=== PATIENT | male | born 1960 | race Caucasian/White ===

== ENCOUNTER 2016-10-28 13:58 | Inpatient (IN) | payer BC ==
[~2016-10-28] VITALS: Ht 172.7 cm; Wt 99.1 kg
[2016-10-28] VITALS (9 sets, daily range): BP systolic 94–155; BP diastolic 67–97; PULSE 91–110; RESP 16–24; TEMP 97.1–98.4; O2SAT 97–100
[2016-10-28] MEDS ORDERED: SODIUM CHLORIDE 0.9% FLUSH 10 ML FLUSH IVF PRN (15:15)
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
[2016-10-28 15:43] LABS: AUTOMATED NEUTROPHIL # 5.5 TH/MM3 (1.8-7.7); BASOPHIL # 0.1 TH/MM3 (0-0.2); BASOPHIL % 1.2 % (0.0-2.0); EOSINOPHIL # 0.3 TH/MM3 (0-0.4); EOSINOPHIL % 3.1 % (0.0-4.0); HEMATOCRIT 38.5 % (39.0-51.0); HEMO FLAGS DIFF FINAL; LYMPH % 23.2 % (9.0-44.0); MEAN CELL VOLUME 105.9 FL (80.0-100.0); MEAN CORPUSCULAR HEMOGLOBIN 36.6 PG (27.0-34.0); MEAN CORPUSCULAR HGB CONC 34.5 % (32.0-36.0); MONO % 9.6 % (0.0-8.0); NEUT % 62.9 % (16.0-70.0); PLATELET COUNT 194 TH/MM3 (150-450); RED BLOOD COUNT 3.63 MIL/MM3 (4.50-5.90); RED CELL DISTRIBUTION WIDTH 14.5 % (11.6-17.2); WHITE BLOOD COUNT 8.8 TH/MM3 (4.0-11.0)
[2016-10-28] MEDS ORDERED: SODIUM CHLOR 0.9% 1000 ML INJ 1,000 ML IV ONE ×2 (15:45→16:45)
[2016-10-28 15:53] LABS: APTT (PATIENT) 25.9 SEC (24.3-30.1); INTERNATIONAL NORMALIZED RATIO 1.1 RATIO; PROTHROMBIN TIME - PATIENT 11.9 SEC (9.8-11.6)
--- NOTE | 2016-10-28 16:06 | RADRPT ---
EXAM DATE/TIME: 10/28/2016 15:37 [facility] COMPARISON: No previous studies available for comparison. INDICATIONS : Cough and dizziness. MEDICAL HISTORY : None. SURGICAL HISTORY : None. ENCOUNTER: Initial ACUITY: 4 - 6 days PAIN SCORE: 0/10 LOCATION: Bilateral chest FINDINGS: Minimal linear parenchymal opacity at the left lung base. Cardiomediastinal contours are within naina l limits. Bony thorax is intact. CONCLUSION: 1. Minimal left basilar atelectasis/scarring. Beck Stark MD on October 28, 2016 at 16:04 Board Certified Radiologist. This report was verified electronically.
[2016-10-28 16:18] LABS: ALKALINE PHOSPHATASE 112 U/L (45-117); ALT (GPT) 34 U/L (12-78); ANION GAP 8 MEQ/L (5-15); AST (GOT) 35 U/L (15-37); BICARBONATE 28.2 MEQ/L (21.0-32.0); BLOOD UREA NITROGEN 20 MG/DL (7-18); CHLORIDE 93 MEQ/L (98-107); GLOMERULAR FILTRATION RATE 31 ML/MIN (>89); MAGNESIUM 0.8 MG/DL (1.5-2.5); SODIUM (NA) 129 MEQ/L (136-145); TOTAL BILIRUBIN ADULT 0.4 MG/DL (0.2-1.0)
[2016-10-28 16:19] LABS: CREATINE KINASE 73 U/L (39-308); POTASSIUM 3.9 MEQ/L (3.5-5.1)
[2016-10-28 16:22] LABS: CALCIUM-PROTEIN CORRECTED 11.8 MG/DL (8.5-10.1)
[2016-10-28] MEDS: MAGNESIUM SULFATE 1 GM PREMIX 100 ML IV SCH ×2 (16:38→17:43)
[2016-10-28] MEDS ORDERED: ONDANSETRON HCL 4 MG/2 ML VIAL IVP PRN (16:45)
[2016-10-28] MEDS ORDERED: NALOXONE HCL 0.4 MG/ML AMP IV PUSH PRN (16:45)
[2016-10-28] MEDS ORDERED: BISACODYL 10 MG SUPP RECTAL PRN (16:45)
[2016-10-28] MEDS ORDERED: MAGNESIUM HYDROXIDE SUSP 30 ML CUP PO PRN (16:45)
[2016-10-28] MEDS ORDERED: SODIUM CHLORIDE 0.9% FLUSH 10 ML FLUSH IV FLUSH PRN (16:45)
[2016-10-28] MEDS ORDERED: ACETAMINOPHEN 325 MG TAB PO PRN (16:45)
[2016-10-28] MEDS ORDERED: SENNOSIDES 8.6 MG TAB PO PRN (16:45)
[2016-10-28] MEDS ORDERED: LACTULOSE SYRUP 20 GM/30 ML CUP PO PRN (16:45)
--- NOTE | 2016-10-28 17:53 | HHI.HP ---
[facility] Unknown Admission Diagnosis hypercalcemia, hypomagnesemia, generalized weakness Diagnoses: (1) Hypercalcemia (2) Hypomagnesemia (3) Acute kidney injury Chief Complaint: Hypercalcemia Travel History International Travel<30 Days: No Contact w/Intl Traveler <30 Da: No Traveled to Known Affected Are: No History of Present Illness Written by Renee Coleman, acting as scribe for Dr. Riddle on 10/28/16 at 17:46. Mr. Mendez is a 56-year-old male patient with a known medical history of hypertension, diverticulitis, GERD and tobacco abuse who presented to the ED with hypercalcemia. Patient states he has been suffering from worsening indigestion x 1 week and has been taking tums regularly throughout the day for over a week now with no relief. Patient visited his PCP on Saturday for indigestion and got labs done. PCP called him today updating him on his increased calcium level and was advised to come to the ED for treatment. Denies any recent illness including fever, chills, cough, chest pain, shortness of breath, headache, abdominal pain, nausea, vomiting, diarrhea or dysuria. He does complain of associated dizziness. Denies any significant history of electrolyte imbalance. Also states he has been in [facility] for the past 3 years and was "unable to drink milk there, so he has been drinking a glass of milk every day as well". He has followed with a GI doctor, unknown name, and received GI work up including colonoscopy and EGD 6 months ago which was unremarkable per patient. Denies any recent stool changes or hematochezia. Also states that he has chronic hypertension and takes BP mediation from [place] "because it is less expensive" and cannot recall the name. States will bring in his medications later. Denies any palpitations, seizures, muscle weakness or tremors. Review of Systems Constitutional: DENIES: Fatigue, Fever, Change in appetite Eyes: DENIES: Eye pain Ears, nose, mouth, throat: DENIES: Throat pain, Ear Pain Respiratory: DENIES: Cough, Shortness of breath Cardiovascular: DENIES: Chest pain, Palpitations Gastrointestinal: DENIES: Constipation, Diarrhea, Nausea, Vomiting Musculoskeletal: COMPLAINS OF: Muscle aches Neurologic: COMPLAINS OF: Localized weakness Psychiatric: DENIES: Anxiety Except as stated in HPI: all other systems reviewed are Neg Past Family Social History Past Medical History Hypertension Tobacco abuse GERD Diverticulitis Past Surgical History Colonoscopy and EGD 6 months ago. Reported Medications Active Active Prescriptions or Reported Medications Unobtainable Allergies: Coded Allergies: No Known Allergies (Unverified , 10/28/16) Active Ordered Medications Current Medications Medications (Trade) Dose Ordered Sig/Minerva Route Start Time Stop Time Status Last Admin Magnesium Sulfate/ Dextrose 100 ml @ 100 mls/hr Q1H IV 10/28/16 16:30 10/28/16 18:29 10/28/16 17:43 Sodium Chloride 1,000 ml @ 100 mls/hr Q10H IV 10/28/16 16:38 (NS Flush) 2 ml UNSCH PRN IV FLUSH 10/28/16 16:45 (NS Flush) 2 ml BID IV FLUSH 10/28/16 21:00 (Tylenol) 650 mg Q4H PRN PO 10/28/16 16:45 (Zofran Inj) 4 mg Q6H PRN IVP 10/28/16 16:45 (Lovenox Inj) 40 mg Q24H SQ 10/28/16 17:00 (Narcan Inj) 0.4 mg UNSCH PRN IV PUSH 10/28/16 16:45 (Tiffanie-Colace) 1 tab BID PO 10/28/16 21:00 (Milk Of Magnesia Liq) 30 ml Q12H PRN PO 10/28/16 16:45 (Senokot) 17.2 mg Q12H PRN PO 10/28/16 16:45 (Dulcolax Supp) 10 mg DAILY PRN RECTAL 10/28/16 16:45 (Lactulose Liq) 30 ml DAILY PRN PO 10/28/16 16:45 Sodium Chloride 1,000 ml @ 999 mls/hr BOLUS ONCE IV 10/28/16 16:45 10/28/16 17:45 10/28/16 17:29 Family History Sister has significant medical history of thyroid disease. No known Social History Patient admits to current tobacco abuse smoking 1 1/2 pack per day. Admits to drinking 2 alcoholic drinks per day. Denies any illicit drug use. Physical Exam Vital Signs Vital Signs Date Time Temp Pulse Resp B/P (MAP) Pulse Ox O2 Delivery O2 Flow Rate FiO2 10/28/16 16:42 97 16 122/82 (95) 99 Room Air 10/28/16 15:37 94 20 109/77 (88) 103 24 108/78 (88) 105 21 94/67 (76) 10/28/16 15:11 103 24 129/77 (94) 99 Room Air 10/28/16 13:59 98.4 110 16 137/75 (95) 98 Physical Exam GENERAL: This is a well-nourished, well-developed male patient, lying in bed in no apparent distress. SKIN: No rashes, ecchymoses or lesions. Warm and dry. HEAD: Atraumatic. Normocephalic. Pupils equal round and reactive. Extraocular motions intact. No scleral icterus. No injection or drainage. Nose without bleeding. Uvula midline. Airway patent. NECK: Trachea midline. No JVD or lymphadenopathy. Supple. CARDIOVASCULAR: Regular rate and rhythm without murmurs, gallops, or rubs. RESPIRATORY: Clear to auscultation. Breath sounds equal bilaterally. No wheezes , rales, or rhonchi. GASTROINTESTINAL: Abdomen soft, non-tender, nondistended. No guarding. MUSCULOSKELETAL: Extremities without clubbing, cyanosis, or edema. No joint tenderness, effusion, or edema noted. NEUROLOGICAL: Awake and alert. Cranial nerves II through XII intact. Motor and sensory grossly within normal limits. Five out of 5 muscle strength in all muscle groups. Normal speech. Laboratory Laboratory Tests Test 10/28/16 15:30 White Blood Count 8.8 Red Blood Count 3.63 Hemoglobin 13.3 Hematocrit 38.5 Mean Corpuscular Volume 105.9 Mean Corpuscular Hemoglobin 36.6 Mean Corpuscular Hemoglobin Concent 34.5 Red Cell Distribution Width 14.5 Platelet Count 194 Mean Platelet Volume 10.1 Neutrophils (%) (Auto) 62.9 Lymphocytes (%) (Auto) 23.2 Monocytes (%) (Auto) 9.6 Eosinophils (%) (Auto) 3.1 Basophils (%) (Auto) 1.2 Neutrophils # (Auto) 5.5 Lymphocytes # (Auto) 2.0 Monocytes # (Auto) 0.9 Eosinophils # (Auto) 0.3 Basophils # (Auto) 0.1 CBC Comment DIFF FINAL Differential Comment Prothrombin Time 11.9 Prothromb Time International Ratio 1.1 Activated Partial Thromboplast Time 25.9 Blood Urea Nitrogen 20 Creatinine 2.23 Random Glucose 87 Total Protein 7.5 Albumin 3.7 Calcium Level 12.0 Magnesium Level 0.8 Alkaline Phosphatase 112 Aspartate Amino Transf (AST/SGOT) 35 Alanine Aminotransferase (ALT/SGPT) 34 Total Bilirubin 0.4 Sodium Level 129 Potassium Level 3.9 Chloride Level 93 Carbon Dioxide Level 28.2 Anion Gap 8 Estimat Glomerular Filtration Rate 31 Protein Corrected Calcium 11.8 Total Creatine Kinase 73 Troponin I LESS THAN 0.02 Result Diagram: 10/28/16 1530 10/28/16 1530 Imaging Last Impressions Chest X-Ray 10/28/16 1515 Signed Impressions: Service Date/Time: Friday, October 28, 2016 15:37 - CONCLUSION: 1. Minimal left basilar atelectasis/scarring. MD Tita Ca VTE Risk Assessment Caprini VTE Risk Assessment: No/Low Risk (score <= 1) Caprini Risk Assessment Model Point Value = 1 Point Value = 2 Point Value = 3 Point Value = 5 Age 41-60 Minor surgery BMI > 25 kg/m2 Swollen legs Varicose veins or History of unexplained or recurrent spontaneous Oral contraceptives or hormone replacement Sepsis (< 1 month) Serious lung disease, including pneumonia (< 1 month) Abnormal pulmonary function Acute myocardial infarction Congestive heart failure (< 1 month) History of inflammatory bowel disease Medical patient at bed rest Age 61-74 Arthroscopic surgery Major open surgery (> 45 min) Laparoscopic surgery (> 45 min) Malignancy Confined to bed (> 72 hours) Immobilizing plaster cast Central venous access Age >= 75 History of VTE Family history of VTE Factor V Leiden Prothrombin [id number] Lupus anticoagulant Anticardiolipin antibodies Elevated serum homocysteine Heparin-induced thrombocytopenia Other congenital or acquired thrombophilia Stroke (< 1 month) Elective arthroplasty Hip, pelvis, or leg fracture Acute spinal cord injury (< 1 month) Prophylaxis Regimen Total Risk Factor Score Risk Level Prophylaxis Regimen 0-1 Low Early ambulation 2 Moderate Order ONE of the following: *Sequential Compression Device (SCD) *Heparin 5000 units SQ BID 3-4 Higher Order ONE of the following medications: *Heparin 5000 units SQ TID *Enoxaparin/Lovenox 40 mg SQ daily (WT < 150 kg, CrCl > 30 mL/min) *Enoxaparin/Lovenox 30 mg SQ daily (WT < 150 kg, CrCl > 10-29 mL/min) *Enoxaparin/Lovenox 30 mg SQ BID (WT < 150 kg, CrCl > 30 mL/min) AND/OR *Sequential Compression Device (SCD) 5 or more Highest Order ONE of the following medications: *Heparin 5000 units SQ TID (Preferred with Epidurals) *Enoxaparin/Lovenox 40 mg SQ daily (WT < 150 kg, CrCl > 30 mL/min) *Enoxaparin/Lovenox 30 mg SQ daily (WT < 150 kg, CrCl > 10-29 mL/min) *Enoxaparin/Lovenox 30 mg SQ BID (WT < 150 kg, CrCl > 30 mL/min) AND *Sequential Compression Device (SCD) Assessment and Plan Assessment and Plan Mr. Mendez is a 56-year-old male patient with a known medical history of hypertension, diverticulitis, GERD and tobacco abuse who presented to the ED with hypercalcemia. Patient states he has been suffering from worsening indigestion x 1 week and has been taking tums regularly throughout the day for over a week now with no relief. EKG shows sinus rhythm, heart rate 90, no acute ST changes. CBC shows no acute abnormality. CMP shows hyponatremia 129, elevated BUN and creatinine of 20/2.23, protein corrected calcium 11.8. Magnesium is 0.8. CK is 73. Troponin is less than 0.02. PT is 11.9, INR 1.1, PTT 25.9. Severe hypercalcemia Hypomagnesium Hyponatremia - Protein corrected calcium level on presentation 11.8. Magnesium level 0.8 on presentation. Na 129. - Continue close cardiac telemetry. Monitor for any arrhythmias. Monitor vital signs closely. Obtain orthostatic BPs. - Status post 2 L NS bolus given in ED. Will place on IVF NS @ 100 ml/hr. - 2 grams of IV magnesium ordered and given in ED. - BMP ordered for am, follow. Acute kidney injury suspect secondary to hypercalcemia vs dehydration - Creatinine 2.23 on presentation. Unknown baseline creatinine. Denies any history of kidney disease. Will monitor BMP, follow closely. Hypertension, chronic: Controlled at this time. Will continue to monitor BP. Chronic alcoholism: MCV 105.9. Admits to drinking 2 drinks per day. Encouraged cessation. Tobacco abuse: Encouraged cessation. GERD/GI prophylaxis: Protonix. DVT prophylaxis: SCDs. Lovenox. This note was transcribed by keya CASTELAN. I, Dr. Mary Lou Riddle personally performed the history, physical exam, and medical decision making; and confirmed the accuracy of the information in the transcribed note. Authenticated by Dr. Mary Lou Riddle on 10/28/16 at 17:46. Physician Certification 2 Midnight Certification Type: Admission for Inpatient Services Order for Inpatient Services The services are ordered in accordance with Medicare regulations or non- Medicare payer requirements, as applicable. In the case of services not specified as inpatient-only, they are appropriately provided as inpatient services in accordance with the 2-midnight benchmark. Estimated LOS (days): 2 2 days is the estimated time the patient will need to remain in the hospital, assuming treatment plan goals are met and no additional complications. Post-Hospital Plan: Home Renee Coleman Oct 28, 2016 17:53 Mary Lou Riddle MD Oct 28, 2016 18:48
[2016-10-28] MEDS: ENOXAPARIN SODIUM 40 MG/0.4 ML SYRINGE SQ SCH (18:55)
[2016-10-28] MEDS: SODIUM CHLOR 0.9% 1000 ML INJ 1,000 ML IV SCH (20:09)
[2016-10-28] MEDS: SODIUM CHLORIDE 0.9% FLUSH 10 ML FLUSH IV FLUSH SCH (20:12)
[2016-10-28] MEDS: DOCUSATE SODIUM 50 MG/SENNA 8.6 MG TAB PO SCH (20:12)
[2016-10-28] MEDS ORDERED: CALCIUM CARBONATE 500 MG CHEWABLE TAB CHEW ONE (20:30)
[2016-10-28] MEDS: PANTOPRAZOLE SOD 40 MG DELAYED RELEASE TAB PO SCH (20:37)
--- NOTE | 2016-10-28 21:49 | EKG ---
Date Performed: 10/28/2016 Time Performed: 16:24:44 PTAGE: 56 years EKG: Sinus rhythm POSSIBLE RIGHT VENTRICULAR CONDUCTION DELAY BORDERLINE ECG NO PREVIOUS TRACING DOCTOR: Johnson Campo Interpretating Date/Time 10/28/2016 21:48:22
[2016-10-28] MEDS ORDERED: MECL-62 PO (21:55)
[2016-10-28] MEDS ORDERED: IRBE150T17 PO (21:56)
[2016-10-29] VITALS (8 sets, daily range): BP systolic 116–138; BP diastolic 81–89; PULSE 75–96; RESP 17–19; TEMP 96.3–97.1; O2SAT 95–100
[2016-10-29] MEDS: SODIUM CHLOR 0.9% 1000 ML INJ 1,000 ML IV SCH ×3 (04:20→22:38)
[2016-10-29 07:11] LABS: AUTOMATED NEUTROPHIL # 3.8 TH/MM3 (1.8-7.7); BASOPHIL # 0.1 TH/MM3 (0-0.2); BASOPHIL % 1.4 % (0.0-2.0); EOSINOPHIL # 0.4 TH/MM3 (0-0.4); EOSINOPHIL % 5.2 % (0.0-4.0); HEMATOCRIT 33.7 % (39.0-51.0); HEMO FLAGS DIFF FINAL; LYMPH % 30.9 % (9.0-44.0); LYMPHOCYTE # 2.3 TH/MM3 (1.0-4.8); MEAN CELL VOLUME 107.3 FL (80.0-100.0); MEAN CORPUSCULAR HGB CONC 34.5 % (32.0-36.0); MONO % 10.8 % (0.0-8.0); NEUT % 51.7 % (16.0-70.0); PLATELET COUNT 175 TH/MM3 (150-450); RED BLOOD COUNT 3.14 MIL/MM3 (4.50-5.90); RED CELL DISTRIBUTION WIDTH 14.3 % (11.6-17.2); WHITE BLOOD COUNT 7.4 TH/MM3 (4.0-11.0)
[2016-10-29 07:49] LABS: BICARBONATE 26.5 MEQ/L (21.0-32.0)
[2016-10-29] MEDS: SODIUM CHLORIDE 0.9% FLUSH 10 ML FLUSH IV FLUSH SCH ×2 (09:00→21:08)
[2016-10-29] MEDS ORDERED: PANTOPRAZOLE SOD 40 MG DELAYED RELEASE TAB PO SCH (09:00)
--- NOTE | 2016-10-29 09:03 | HHI.PR ---
Subjective Remarks Patient in nad. No palpitations, chest pain, n/v/d/c. No abdominal cramps or muscle cramps. No constipation. Never had problems with kidneys. No Fever or chills. No n/v/d/c. Objective Vitals Vital Signs Date Time Temp Pulse Resp B/P (MAP) Pulse Ox O2 Delivery O2 Flow Rate FiO2 10/29/16 07:52 96.4 75 17 129/84 (99) 97 10/29/16 05:15 87 10/29/16 04:21 97.1 88 18 119/81 (94) 96 10/29/16 00:06 97.1 96 18 116/85 (95) 95 10/28/16 21:15 97.1 96 17 148/97 (114) 99 143/89 (107) 155/91 (112) 10/28/16 20:59 93 18 144/85 (104) 95 10/28/16 20:06 97 Room Air 10/28/16 20:06 94 18 144/85 (104) 97 Room Air 10/28/16 19:20 99 10/28/16 18:56 91 24 138/84 (102) 100 Room Air 10/28/16 16:48 21 10/28/16 16:42 97 16 122/82 (95) 99 Room Air 10/28/16 15:37 94 20 109/77 (88) 103 24 108/78 (88) 105 21 94/67 (76) 10/28/16 15:11 103 24 129/77 (94) 99 Room Air 10/28/16 13:59 98.4 110 16 137/75 (95) 98 I/O 10/28/16 10/28/16 10/28/16 10/29/16 10/29/16 10/29/16 07:00 15:00 23:00 07:00 15:00 23:00 Intake Total 2340 ml 480 ml Balance 2340 ml 480 ml Intake Oral 240 ml 480 ml IV Total 2100 ml # Voids 3 2 # Bowel Movements 0 0 Result Diagram: 10/29/16 0644 10/29/16 0644 Imaging Last Impressions Renal Ultrasound 10/29/16 0000 Signed Impressions: Service Date/Time: Saturday, October 29, 2016 09:10 - CONCLUSION: Unremarkable renal ultrasound.. Carl Delgado MD FACR Chest X-Ray 10/28/16 1515 Signed Impressions: Service Date/Time: Friday, October 28, 2016 15:37 - CONCLUSION: 1. Minimal left basilar atelectasis/scarring. Beck Stark MD Objective Remarks GENERAL: This is a well-nourished, well-developed male patient, lying in bed in no apparent distress. SKIN: No rashes, ecchymoses or lesions. Warm and dry. HEAD: Atraumatic. Normocephalic. Pupils equal round and reactive. Extraocular motions intact. No scleral icterus. No injection or drainage. Nose without bleeding. Uvula midline. Airway patent. NECK: Trachea midline. No JVD or lymphadenopathy. Supple. CARDIOVASCULAR: Regular rate and rhythm without murmurs, gallops, or rubs. RESPIRATORY: Clear to auscultation. Breath sounds equal bilaterally. No wheezes , rales, or rhonchi. GASTROINTESTINAL: Abdomen soft, non-tender, nondistended. No guarding. MUSCULOSKELETAL: Extremities without clubbing, cyanosis, or edema. No joint tenderness, effusion, or edema noted. NEUROLOGICAL: Awake and alert. Cranial nerves II through XII intact. Motor and sensory grossly within normal limits. Five out of 5 muscle strength in all muscle groups. Normal speech. A/P Problem List: (1) Hypercalcemia ICD Code: E83.52 - Hypercalcemia Status: Acute (2) Hypomagnesemia ICD Code: E83.42 - Hypomagnesemia Status: Acute (3) Acute kidney injury ICD Code: N17.9 - Acute kidney failure, unspecified Status: Acute Assessment and Plan Mr. Mendez is a 56-year-old male patient with a known medical history of hypertension, diverticulitis, GERD and tobacco abuse who presented to the ED with hypercalcemia. Patient states he has been suffering from worsening indigestion x 1 week and has been taking tums regularly throughout the day for over a week now with no relief. EKG shows sinus rhythm, heart rate 90, no acute ST changes. CBC shows no acute abnormality. CMP shows hyponatremia 129, elevated BUN and creatinine of 20/2.23, protein corrected calcium 11.8. Magnesium is 0.8. CK is 73. Troponin is less than 0.02. PT is 11.9, INR 1.1, PTT 25.9. Severe hypercalcemia ,improved with IVF Hypomagnesium back to normal Hyponatremia, improving - Protein corrected calcium level on presentation 11.8. Magnesium level 0.8 on presentation. Na 129. Improving. - Continue close cardiac telemetry. Monitor for any arrhythmias. Monitor vital signs closely. Obtain orthostatic BPs. - Status post 2 L NS bolus given in ED. Will place on IVF NS @ 100 ml/hr. - 2 grams of IV magnesium ordered and given in ED. - BMP ordered for am, follow. Acute kidney injury suspect secondary to hypercalcemia vs dehydration. - Creatinine 2.23 on presentation. Unknown baseline creatinine, however patient denies having any kidney disease. Will do kidney US, consult nephrology. Denies any history of kidney disease. Will monitor BMP, follow closely. Kidney function improving Hypertension, chronic: Controlled at this time. Will continue to monitor BP. Chronic alcoholism: MCV 105.9. Admits to drinking 2 drinks per day. Encouraged cessation. Tobacco abuse: Encouraged cessation. GERD/GI prophylaxis: Protonix. DVT prophylaxis: SCDs. Lovenox. Mary Lou Riddle MD Oct 29, 2016 09:03
--- NOTE | 2016-10-29 10:01 | RADRPT ---
EXAM DATE/TIME: 10/29/2016 09:10 [facility] COMPARISON: No previous studies available for comparison. INDICATIONS : Increased BUN/Creatinine. MEDICAL HISTORY : Gastroesophageal reflux disease. Hypertension. Diverticulitis. SURGICAL HISTORY : Surgery for diverticulitis. ENCOUNTER: Initial ACUITY: 1 day PAIN SCORE: 0/10 LOCATION: Bilateral flank MEASUREMENTS: RIGHT KIDNEY: 11.3 x 5.5 x 5.0 cm LEFT KIDNEY: 11.4 x 5.4 x 6.2 cm FINDINGS: RIGHT KIDNEY: Renal cortex is normal in thickness and echotexture. No hydronephrosis, stone, or mass. LEFT KIDNEY: Renal cortex is normal in thickness and echotexture. No hydronephrosis, stone, or mass. BLADDER: Within normal limits given the degree of distension. CONCLUSION: Unremarkable renal ultrasound.. Carl Delgado MD FACR on October 29, 2016 at 9:59 Board Certified Radiologist. This report was verified electronically.
[2016-10-29] MEDS: DOCUSATE SODIUM 50 MG/SENNA 8.6 MG TAB PO SCH ×2 (10:14→21:00)
[2016-10-29] MEDS: PANTOPRAZOLE SOD 40 MG DELAYED RELEASE TAB PO SCH ×2 (10:14→21:07)
[2016-10-29] MEDS: ENOXAPARIN SODIUM 40 MG/0.4 ML SYRINGE SQ SCH (17:00)
[2016-10-30 03:17] VITALS: BP 142/78; PULSE 88; RESP 18; TEMP 97.3; O2SAT 98
[2016-10-30 05:39] VITALS: BP 114/76; PULSE 85; RESP 18; TEMP 97.2; O2SAT 97
[2016-10-30 07:48] VITALS: BP 137/93; PULSE 82; RESP 18; TEMP 97; O2SAT 96
[2016-10-30] MEDS: SODIUM CHLOR 0.9% 1000 ML INJ 1,000 ML IV SCH (08:36)
[2016-10-30] MEDS: DOCUSATE SODIUM 50 MG/SENNA 8.6 MG TAB PO SCH (08:36)
[2016-10-30] MEDS: PANTOPRAZOLE SOD 40 MG DELAYED RELEASE TAB PO SCH (08:36)
[2016-10-30] MEDS: SODIUM CHLORIDE 0.9% FLUSH 10 ML FLUSH IV FLUSH SCH (08:36)
[2016-10-30 08:49] LABS: TOTAL PROTEIN SPE 5.6 GM/DL (6.0-7.6)
[2016-10-30 09:06] LABS: BICARBONATE 24.1 MEQ/L (21.0-32.0); MAGNESIUM 1.2 MG/DL (1.5-2.5); POTASSIUM 3.5 MEQ/L (3.5-5.1)
--- NOTE | 2016-10-30 09:40 | HHI.PR ---
Subjective Remarks Feels better and wants to go home. Denies chest pain or sob. Denies n/v/d/c. No tremors. No palpitations. Objective Vitals Vital Signs Date Time Temp Pulse Resp B/P (MAP) Pulse Ox O2 Delivery O2 Flow Rate FiO2 10/30/16 07:48 97.0 82 18 137/93 (108) 96 10/30/16 05:39 97.2 85 18 114/76 (89) 97 10/30/16 03:17 97.3 88 18 142/78 (99) 98 10/29/16 20:29 21 10/29/16 19:14 Room Air 10/29/16 19:03 97.0 86 19 121/81 (94) 98 127/84 (98) 130/88 (102) 10/29/16 16:00 96.6 85 17 138/87 (104) 100 10/29/16 11:49 96.3 78 18 135/89 (104) 97 10/29/16 11:00 78 I/O 10/29/16 10/29/16 10/29/16 10/30/16 10/30/16 10/30/16 07:00 15:00 23:00 07:00 15:00 23:00 Intake Total 480 ml 960 ml 720 ml 1560 ml Balance 480 ml 960 ml 720 ml 1560 ml Intake Oral 480 ml 960 ml 720 ml 360 ml IV Total 1200 ml # Voids 2 4 2 2 # Bowel Movements 0 2 0 0 Result Diagram: 10/29/16 0644 10/30/16 0625 Imaging Last Impressions Renal Ultrasound 10/29/16 0000 Signed Impressions: Service Date/Time: Saturday, October 29, 2016 09:10 - CONCLUSION: Unremarkable renal ultrasound.. Carl Delgado MD FACR Chest X-Ray 10/28/16 1515 Signed Impressions: Service Date/Time: Friday, October 28, 2016 15:37 - CONCLUSION: 1. Minimal left basilar atelectasis/scarring. Beck Stark MD Objective Remarks GENERAL: This is a well-nourished, well-developed male patient, lying in bed in no apparent distress. SKIN: No rashes, ecchymoses or lesions. Warm and dry. HEAD: Atraumatic. Normocephalic. Pupils equal round and reactive. Extraocular motions intact. No scleral icterus. No injection or drainage. Nose without bleeding. Uvula midline. Airway patent. NECK: Trachea midline. No JVD or lymphadenopathy. Supple. CARDIOVASCULAR: Regular rate and rhythm without murmurs, gallops, or rubs. RESPIRATORY: Clear to auscultation. Breath sounds equal bilaterally. No wheezes , rales, or rhonchi. GASTROINTESTINAL: Abdomen soft, non-tender, nondistended. No guarding. MUSCULOSKELETAL: Extremities without clubbing, cyanosis, or edema. No joint tenderness, effusion, or edema noted. NEUROLOGICAL: Awake and alert. Cranial nerves II through XII intact. Motor and sensory grossly within normal limits. Five out of 5 muscle strength in all muscle groups. Normal speech. A/P Problem List: (1) Hypercalcemia ICD Code: E83.52 - Hypercalcemia Status: Acute (2) Hypomagnesemia ICD Code: E83.42 - Hypomagnesemia Status: Acute (3) Acute kidney injury ICD Code: N17.9 - Acute kidney failure, unspecified Status: Acute Assessment and Plan Mr. Mendez is a 56-year-old male patient with a known medical history of hypertension, diverticulitis, GERD and tobacco abuse who presented to the ED with hypercalcemia. Patient states he has been suffering from worsening indigestion x 1 week and has been taking tums regularly throughout the day for over a week now with no relief. EKG shows sinus rhythm, heart rate 90, no acute ST changes. CBC shows no acute abnormality. CMP shows hyponatremia 129, elevated BUN and creatinine of 20/2.23, protein corrected calcium 11.8. Magnesium is 0.8. CK is 73. Troponin is less than 0.02. PT is 11.9, INR 1.1, PTT 25.9. Severe hypercalcemia ,improved with IVF Hypomagnesium monitor and replace Hyponatremia, improving - Protein corrected calcium level on presentation 11.8. Magnesium level 0.8 on presentation. Na 129. Improving. - Continue close cardiac telemetry. Monitor for any arrhythmias. Monitor vital signs closely. Obtain orthostatic BPs. - Status post 2 L NS bolus given in ED. Will place on IVF NS @ 100 ml/hr. - 2 grams of IV magnesium ordered and given in ED. replace again today - f/u BMP Acute kidney injury suspect secondary to hypercalcemia vs dehydration. - Creatinine 2.23 on presentation. Unknown baseline creatinine, however patient denies having any kidney disease. Kidney US reviewed and normal, , consult nephrology appreciate recommendations. Denies any history of kidney disease. Will monitor BMP, follow closely. Kidney function improving. Hypertension, chronic: Controlled at this time. Will continue to monitor BP. Chronic alcoholism: MCV 105.9. Admits to drinking 2 drinks per day. Encouraged cessation. Tobacco abuse: Encouraged cessation. GERD/GI prophylaxis: Protonix. DVT prophylaxis: SCDs. Lovenox. DC plan: Kidney function improving, patient wants to go home today, seen by agapito ordaz DC today per nephro. Stop taking meds from [place] ibersartan/HCTZ as interfere with kidney function/ electrolytes. Will strt small dose of amlodipine to control BP patient to follow up as OP with his PCP and nephrology Mary Lou Riddle MD Oct 30, 2016 09:40
--- NOTE | 2016-10-30 10:20 | HHI.DS ---
Discharge Summary Admission Date Oct 28, 2016 at 16:42 Discharge Date: Oct 30, 2016 Admitting Diagnosis hypercalcemia, hypomagnesemia, generalized weakness (1) Hypercalcemia ICD Code: E83.52 - Hypercalcemia Status: Acute (2) Hypomagnesemia ICD Code: E83.42 - Hypomagnesemia Status: Acute (3) Acute kidney injury ICD Code: N17.9 - Acute kidney failure, unspecified Status: Acute Procedures none Brief History - From Admission Written by Renee Coleman, acting as scribe for Dr. Riddle on 10/28/16 at 17:46. Mr. Mendez is a 56-year-old male patient with a known medical history of hypertension, diverticulitis, GERD and tobacco abuse who presented to the ED with hypercalcemia. Patient states he has been suffering from worsening indigestion x 1 week and has been taking tums regularly throughout the day for over a week now with no relief. Patient visited his PCP on Saturday for indigestion and got labs done. PCP called him today updating him on his increased calcium level and was advised to come to the ED for treatment. Denies any recent illness including fever, chills, cough, chest pain, shortness of breath, headache, abdominal pain, nausea, vomiting, diarrhea or dysuria. He does complain of associated dizziness. Denies any significant history of electrolyte imbalance. Also states he has been in [facility] for the past 3 years and was "unable to drink milk there, so he has been drinking a glass of milk every day as well". He has followed with a GI doctor, unknown name, and received GI work up including colonoscopy and EGD 6 months ago which was unremarkable per patient. Denies any recent stool changes or hematochezia. Also states that he has chronic hypertension and takes BP mediation from [place] "because it is less expensive" and cannot recall the name. States will bring in his medications later. Denies any palpitations, seizures, muscle weakness or tremors. CBC/BMP: 10/29/16 0644 10/30/16 0625 Significant Findings Laboratory Tests Test 10/28/16 15:30 10/29/16 06:44 10/30/16 06:25 Red Blood Count 3.63 MIL/MM3 (4.50-5.90) 3.14 MIL/MM3 (4.50-5.90) Hematocrit 38.5 % (39.0-51.0) 33.7 % (39.0-51.0) Mean Corpuscular Volume 105.9 FL (80.0-100.0) 107.3 FL (80.0-100.0) Mean Corpuscular Hemoglobin 36.6 PG (27.0-34.0) 37.0 PG (27.0-34.0) Monocytes (%) (Auto) 9.6 % (0.0-8.0) 10.8 % (0.0-8.0) Prothrombin Time 11.9 SEC (9.8-11.6) Blood Urea Nitrogen 20 MG/DL (7-18) Creatinine 2.23 MG/DL (0.60-1.30) 1.78 MG/DL (0.60-1.30) 1.52 MG/DL (0.60-1.30) Calcium Level 12.0 MG/DL (8.5-10.1) 10.4 MG/DL (8.5-10.1) Magnesium Level 0.8 MG/DL (1.5-2.5) 1.2 MG/DL (1.5-2.5) Sodium Level 129 MEQ/L (136-145) 131 MEQ/L (136-145) 134 MEQ/L (136-145) Chloride Level 93 MEQ/L (98-107) Estimat Glomerular Filtration Rate 31 ML/MIN (>89) 40 ML/MIN (>89) 48 ML/MIN (>89) Protein Corrected Calcium 11.8 MG/DL (8.5-10.1) Troponin I LESS THAN 0.02 NG/ML Hemoglobin 11.6 GM/DL (13.0-17.0) Eosinophils (%) (Auto) 5.2 % (0.0-4.0) Albumin 3.2 GM/DL (3.4-5.0) Phosphorus Level 2.4 MG/DL (2.5-4.9) Total Protein 5.6 GM/DL (6.0-7.6) 25-Hydroxy Vitamin D Total 23.9 ng/ML (30-100) Parathyroid Hormone (Intact) 4.7 PG/ML (12.4-76.8) Imaging Last Impressions Renal Ultrasound 10/29/16 0000 Signed Impressions: Service Date/Time: Saturday, October 29, 2016 09:10 - CONCLUSION: Unremarkable renal ultrasound.. Carl Delgado MD FACR Chest X-Ray 10/28/16 1515 Signed Impressions: Service Date/Time: Friday, October 28, 2016 15:37 - CONCLUSION: 1. Minimal left basilar atelectasis/scarring. Beck Stark MD PE at Discharge GENERAL: This is a well-nourished, well-developed male patient, lying in bed in no apparent distress. SKIN: No rashes, ecchymoses or lesions. Warm and dry. HEAD: Atraumatic. Normocephalic. Pupils equal round and reactive. Extraocular motions intact. No scleral icterus. No injection or drainage. Nose without bleeding. Uvula midline. Airway patent. NECK: Trachea midline. No JVD or lymphadenopathy. Supple. CARDIOVASCULAR: Regular rate and rhythm without murmurs, gallops, or rubs. RESPIRATORY: Clear to auscultation. Breath sounds equal bilaterally. No wheezes , rales, or rhonchi. GASTROINTESTINAL: Abdomen soft, non-tender, nondistended. No guarding. MUSCULOSKELETAL: Extremities without clubbing, cyanosis, or edema. No joint tenderness, effusion, or edema noted. NEUROLOGICAL: Awake and alert. Cranial nerves II through XII intact. Motor and sensory grossly within normal limits. Five out of 5 muscle strength in all muscle groups. Normal speech. Hospital Course Mr. Mendez is a 56-year-old male patient with a known medical history of hypertension, diverticulitis, GERD and tobacco abuse who presented to the ED with hypercalcemia. Patient states he has been suffering from worsening indigestion x 1 week and has been taking tums regularly throughout the day for over a week now with no relief. EKG shows sinus rhythm, heart rate 90, no acute ST changes. CBC shows no acute abnormality. CMP shows hyponatremia 129, elevated BUN and creatinine of 20/2.23, protein corrected calcium 11.8. Magnesium is 0.8. CK is 73. Troponin is less than 0.02. PT is 11.9, INR 1.1, PTT 25.9. Patient received IVF, mag supplement, . Lytes and kidney function improved. Stop taking meds from [place] ibersartan/HCTZ as interfere with kidney function/ electrolytes. Monitor kidney fx as OP on Saturday per nephro.Will start small dose of amlodipine to control BP patient to follow up as OP with his PCP and nephrology. Severe hypercalcemia ,improved with IVF Hypomagnesium monitor and replace Hyponatremia, improving - Protein corrected calcium level on presentation 11.8. Magnesium level 0.8 on presentation. Na 129. Improving. - Continue close cardiac telemetry. Monitor for any arrhythmias. Monitor vital signs closely. Obtain orthostatic BPs. - Status post 2 L NS bolus given in ED. Will place on IVF NS @ 100 ml/hr. - 2 grams of IV magnesium ordered and given in ED. replace again today - f/u BMP Acute kidney injury suspect secondary to hypercalcemia vs dehydration. - Creatinine 2.23 on presentation. Unknown baseline creatinine, however patient denies having any kidney disease. Kidney US reviewed and normal, , consult nephrology appreciate recommendations. Denies any history of kidney disease. Will monitor BMP, follow closely. Kidney function improving. Hypertension, chronic: Controlled at this time. Will continue to monitor BP. Chronic alcoholism: MCV 105.9. Admits to drinking 2 drinks per day. Encouraged cessation. Tobacco abuse: Encouraged cessation. GERD/GI prophylaxis: Protonix. DVT prophylaxis: SCDs. Lovenox. DC plan: Kidney function improving, patient wants to go home today, seen by agapito ordaz DC today per nephro. Stop taking meds from [place] ibersartan/HCTZ as interfere with kidney function/ electrolytes. Will start small dose of amlodipine to control BP patient to follow up as OP with his PCP and nephrology Pt Condition on Discharge: Stable Discharge Disposition: Discharge Home Discharge Time: > 30 minutes Discharge Instructions DIET: Follow Instructions for: Heart Healthy Diet, Renal Failure Diet Activities you can perform: Regular-No Restrictions Follow up Referrals: Nephrology - 11/02/16 PCP Follow-up - 2-3 Days New Orders: BASIC METABOLIC PROF - 11/02/16 New Medications: Amlodipine (Amlodipine) 2.5 Mg Tab 2.5 MG PO DAILY for Blood Pressure Management, #30 TAB 0 Refills Continued Medications: Meclizine (Meclizine) 25 Mg Tab 25 MG PO TID PRN for VERTIGO, TAB 0 Refills Discontinued Medications: Irbesartan-Hydrochlorothiazide (Irbesartan-Hydrochlorothiazide) 150-12.5 Mg Tab 1 TAB PO DAILY for Blood Pressure Management, #30 TAB 0 Refills Mary Lou Riddle MD Oct 30, 2016 10:20
[2016-10-30] MEDS ORDERED: AMLO2.5T PO (10:21)
[2016-10-30] MEDS ORDERED: amLODIPine BESYLATE 5 MG TAB PO SCH (10:30)
--- NOTE | 2016-10-30 10:46 | PD.CONS ---
HPI Service Nephrology Consult Requested By Dr. Riddle Reason for Consult ARF, hypercalcemia Primary Care Physician Unknown History of Present Illness The patient is a 56 yo [place] male who was advised to come to the ED on 10/28 at the urgency of his PCP as outpatient labs showed hypercalcemia. (Not sure of name of PCP as he has only seen him once). Reports he has had significant indigestion for the past week and has been using a significant amount of Tums. He has been experiencing weakness and dizziness for the past few days, but at the present says completely resolved. Denies any recent illness; no nausea, vomiting, nor change in home meds. Does use Irbesartan/HCTZ 150/12.5mg at home (was started in [place] and still using this prescription) but been on this for at least 2 years. Denies any urological issues. Denies home NSAID use. On further investigation, he does mention that he was told that he had renal decline last year when he was in [facility][Note 3] and was told it was related to antibiotics he was receiving for sepsis spawned from diverticulitis. Reports that he was told his renal functions returned to normal after the medication was stopped, however, he is not certain of exact numbers. Admitting SCr 2.23 that improved t 1.78 yesterday and 1.52 at time of consult. Calcium level was 12.0 at arrival that improved with IV hydration to 10.4 and subsequently to 9.1 at consult. Mg 0.8 at admission. (Jennifer Barone) Review of Systems Constitutional: COMPLAINS OF: Dizziness (resolved at the present.) (Jennifer Barone) Past Family Social History Allergies: Coded Allergies: No Known Allergies (Unverified , 10/28/16) Past Medical History ? previous TONY 1 year ago in [facility][Note 3] HTN for 5 years Diverticulitis GERD Past Surgical History EGD/colonoscopy about 6 months ago Reported Medications Reported Meds & Active Scripts Active Amlodipine (Amlodipine Besylate) 2.5 Mg Tab 2.5 Mg PO DAILY Reported Irbesartan-Hydrochlorothiazide 150-12.5 Mg Tab 1 Tab PO DAILY Meclizine (Meclizine HCl) 25 Mg Tab 25 Mg PO TID PRN Active Ordered Medications Current Medications Medications (Trade) Dose Ordered Sig/Minerva Route Start Time Stop Time Status Last Admin Sodium Chloride 1,000 ml @ 100 mls/hr Q10H IV 10/28/16 16:38 10/29/16 16:27 (NS Flush) 2 ml UNSCH PRN IV FLUSH 10/28/16 16:45 (NS Flush) 2 ml BID IV FLUSH 10/28/16 21:00 10/29/16 21:08 (Tylenol) 650 mg Q4H PRN PO 10/28/16 16:45 (Zofran Inj) 4 mg Q6H PRN IVP 10/28/16 16:45 (Lovenox Inj) 40 mg Q24H SQ 10/28/16 17:00 10/29/16 17:00 (Narcan Inj) 0.4 mg UNSCH PRN IV PUSH 10/28/16 16:45 (Tiffanie-Colace) 1 tab BID PO 10/28/16 21:00 10/29/16 10:14 (Milk Of Magnesia Liq) 30 ml Q12H PRN PO 10/28/16 16:45 (Senokot) 17.2 mg Q12H PRN PO 10/28/16 16:45 (Dulcolax Supp) 10 mg DAILY PRN RECTAL 10/28/16 16:45 (Lactulose Liq) 30 ml DAILY PRN PO 10/28/16 16:45 (Protonix) 40 mg BID PO 10/28/16 21:00 10/30/16 08:36 Family History [place] Social History Lives in [place] with . Works internationally and travels quite a bit Smokes 1-2ppd Has 2 alcoholic drinks daily Denies illicit drug use (Jennifer Barone) Physical Exam Vital Signs Vital Signs Date Time Temp Pulse Resp B/P (MAP) Pulse Ox O2 Delivery O2 Flow Rate FiO2 10/30/16 07:48 97.0 82 18 137/93 (108) 96 10/30/16 05:39 97.2 85 18 114/76 (89) 97 10/30/16 03:17 97.3 88 18 142/78 (99) 98 10/29/16 20:29 21 10/29/16 19:14 Room Air 10/29/16 19:03 97.0 86 19 121/81 (94) 98 127/84 (98) 130/88 (102) 10/29/16 16:00 96.6 85 17 138/87 (104) 100 10/29/16 11:49 96.3 78 18 135/89 (104) 97 10/29/16 11:00 78 Laboratory Laboratory Tests Test 10/30/16 06:25 Blood Urea Nitrogen 14 Creatinine 1.52 Random Glucose 87 Albumin 3.2 Calcium Level 9.1 Phosphorus Level 2.4 Magnesium Level 1.2 Sodium Level 134 Potassium Level 3.5 Chloride Level 103 Carbon Dioxide Level 24.1 Anion Gap 7 Estimat Glomerular Filtration Rate 48 Total Protein 5.6 25-Hydroxy Vitamin D Total 23.9 Parathyroid Hormone (Intact) 4.7 (Jennifer Barone) Result Diagram: 10/29/16 0644 10/30/16 0625 Imaging Last Impressions Renal Ultrasound 10/29/16 0000 Signed Impressions: Service Date/Time: Saturday, October 29, 2016 09:10 - CONCLUSION: Unremarkable renal ultrasound.. Carl Delgado MD FACR Chest X-Ray 10/28/16 1515 Signed Impressions: Service Date/Time: Friday, October 28, 2016 15:37 - CONCLUSION: 1. Minimal left basilar atelectasis/scarring. Beck Stark MD (Jennifer Barone) Assessment and Plan Problem List: (1) Acute kidney injury ICD Codes: N17.9 - Acute kidney failure, unspecified Status: Acute Plan: The patient's renal functions have improved with IV hydration indicating prerenal azotemia likely exacerbated by ARB, HCTZ, and hypercalcemia. There is questionable history of previous renal decline about 1 year ago, but [place] and [place] be obtained. He is adamant about leaving today and I am OK with this given the correction of his calcium and improvement in his renal function. He has been advised about importance of adequate fluid intake and limiting EtOH. Will have him hold ARB and HCTZ for the present and start on Amlodipine for BP control. He does need to receive Mg repletion prior to his discharge today and is agreeable to the same. Has been provided with lab order to do on Saturday and instructions to follow up with us as an outpatient in [address] Riddle (2) Hypercalcemia ICD Codes: E83.52 - Hypercalcemia Status: Acute Plan: Likely related to increased ingestion of calcium carbonate for indigestion. HCTZ can also cause hypercalcemia. iPTH low which rules out primary hyperparathyroidism. SPEP pending and can be followed up as outpatient As above, will have the patient hold HCTZ Repeat lab on Saturday as outpatient. Will order additional work up in outpatient setting if warranted. To start on Vitamin D3 1000IU once daily. (3) Hypomagnesemia ICD Codes: E83.42 - Hypomagnesemia Status: Acute Plan: Likely related to hypercalcemia as well as HCTZ Give 1g IV x1. Will repeat as outpatient on Saturday (4) Hyponatremia ICD Codes: E87.1 - Hypo-osmolality and hyponatremia Plan: Potentially related to HCTZ. Does report daily EtOH intake which can exacerbate. Also a smoker. Would benefit from screening CT of the chest as outpatient (5) GERD (gastroesophageal reflux disease) ICD Codes: K21.9 - Gastro-esophageal reflux disease without esophagitis Plan: Advised the patient that he would benefit from taking medication prophylactically for reflux if this is a problem. Recommended Zantac 150-300mg daily. May use Tums if needed, but advised to only use 1000mg calcium carbonate daily. (Jennifer Barone) Assessment and Plan The exam, history, and the medical decision-making described in the above note were completed with the assistance of the PA-C. I reviewed and agree with the findings presented. I attest that I had a [id number] encounter with the patient on the same day, and personally performed and documented my assessment and findings in the medical record. (Celia Winn MD) Jennifer Barone Oct 30, 2016 10:46 Celia Winn MD Nov 14, 2016 16:48
[2016-10-30] MEDS ORDERED: amLODIPine BESYLATE 5 MG TAB PO ONE (10:50)
[2016-10-30] MEDS ORDERED: MAGNESIUM SULFATE 1 GM PREMIX 100 ML IV ONE (11:00)
[2016-10-30] MEDS ORDERED: PILL SPLITTER OTHER PRN (11:00)
[2016-10-30] MEDS ORDERED: CHOLECALCIFEROL (VIT D3) 1000 UNIT TAB PO SCH (11:00)
[2016-10-30 11:10] VITALS: BP 175/96; PULSE 73; RESP 18; TEMP 96.3; O2SAT 100
[2016-10-31] MEDS ORDERED: amLODIPine BESYLATE 5 MG TAB PO SCH (09:00)
[2016-10-31 15:34] LABS: ALBUMIN SPE 3.51 GM/DL (3.50-5.00); ALPHA 1 GLOBULIN 0.17 GM/DL (0.11-0.29); ALPHA 2 GLOBULIN 0.68 GM/DL (0.22-1.00); BETA GLOBULINS (SPE) 0.59 GM/DL (0.53-1.03)
[2016-11-02 07:51] LABS: KAPPA/LAMBDA FREE 1.39 (0.26-1.65)
== END 2016-10-30 14:00 | disposition home or self-care (01) | DRG 641 ==
LOC: NEPC 13:58 → NEDA 16:42 → N06B 21:15
PROVIDERS: ADMIT Hospitalist; ATTEND Hospitalist
DX: E83.52 Hypercalcemia (principal); N17.9 Acute kidney failure, unspecified; E87.1 Hypo-osmolality and hyponatremia; E83.42 Hypomagnesemia; I10 Essential (primary) hypertension; F17.210 Nicotine dependence, cigarettes, uncomplicated; K21.9 Gastro-esophageal reflux disease without esophagitis; F10.20 Alcohol dependence, uncomplicated
CPT/HCPCS: 71010; 76775; 80048; 80053; 80069; 82306; 82550; 82652; 83735; 83883; 83970; 84165; 84484; 85025; 85610; 85730; 86803; 93005; 96361; 96374; J1650; J3475; J7030